=== PATIENT | female | born 2000 | race Two or more races ===

== ENCOUNTER 2023-06-03 23:18 | Emergency (ER) | payer OTHER ==
[~2023-06-03] VITALS: Ht 165.1 cm; Wt 82.6 kg
[2023-06-03] MEDS ORDERED: PRENATAL DHA200 MG (23:29)
== END 2023-06-04 07:12 ==
LOC: ER 23:18
DX: O20.8 Other hemorrhage in early pregnancy (principal); Z3A.01 Less than 8 weeks gestation of pregnancy